=== PATIENT | female | born 1985 | race Hispanic/Latino ===

== ENCOUNTER 2020-09-05 03:50 | Emergency (ER) | payer BC, MEDICAID ==
[~2020-09-05] VITALS: Ht 154.9 cm; Wt 65.9 kg
[~2020-09-05 03:50] MED LIST: ACYCLOVIR400 MG PO; BACTRIM DS1 TAB PO; FLAGYL500 MG PO; KEFLEX500 MG PO; MIRENA IU; NO HOME MEDS; PRENATAL1 TAB PO; ULTRAM50 MG OR
[2020-09-05] MEDS ORDERED: PRENATA3 PO (04:12)
[2020-09-05 04:46] VITALS: BP 133/87
== END 2020-09-05 05:05 | DRG 833 ==
LOC: ED 03:50
DX: O34.219 Maternal care for unspecified type scar from previous cesarean delivery (principal); N85.8 Other specified noninflammatory disorders of uterus; Z3A.39 39 weeks gestation of pregnancy